=== PATIENT | female | born 1960 | race Caucasian/White ===

== ENCOUNTER 2021-08-25 13:26 | Inpatient (IN) ==
[2021-08-25] MEDS ORDERED: IPRATROPIUM/ALBUTEROL 3 ML AMPUL.NEB NEB ONE (13:30)
[2021-08-25] MEDS ORDERED: 0.9 % SODIUM CHLORIDE 1,000 ML IV ONE (13:30)
--- NOTE | 2021-08-25 13:30 | Emergency Department Note ---
SOB HPI General Chief Complaint: Shortness of Breath/Dyspnea Stated Complaint: SOB Time Seen by Provider: 08/25/21 13:28 Limitations: no limitations History of Present Illness HPI Narrative: Narrative: Patient comes in today after being seen at [facility] and was found to be hypoxic with a low oxygen saturation. Upon arrival her oxygen saturation 75% on room air. She indicates that she has been feeling short of breath for the last 3 days. 5 days ago she started to have some nausea and diarrhea. 3 days ago she began feeling short of breath, body aches, and nonproductive cough. She denies any chest pains. She has a history of COPD and reports that she still smokes a pack a day. She does not use any inhaler at home and she does not have any oxygen at home. She denies any hemoptysis. She has not had any calf pain, leg pain, or edema. She denies any abdominal pain. She indicates that her nausea and diarrhea has subsided. Related Data Home Medications Medication Instructions Recorded Confirmed buprenorphine 8 mg-naloxone 2 mg 0.5 tab SUBLINGUAL QID 08/25/21 08/25/21 sublingual tablet Previous Rx's Medication Instructions Recorded venlafaxine 150 mg 150 mg PO QAM #30 cap 05/31/15 capsule,extended release 24 hr venlafaxine 75 mg capsule,extended 75 mg PO QAM #30 cap 05/31/15 release 24 hr Allergies Allergy/AdvReac Type Severity Reaction Status Date / Time bupropion [From Zyban] Allergy Unknown Unknown Verified 08/25/21 12:17 [place] Allergy Unknown Unknown Verified 08/25/21 12:17 Penicillins Allergy Anaphylaxis Verified 08/25/21 12:17 risperidone AdvReac Swelling Verified 08/25/21 12:17 Review of Systems ROS ROS Narrative: Narrative: All systems ED: reviewed and negative except as stated. PFSH Narrative Patient History Narrative: Narrative: Medical/Surgical/Family History All Active Problems (Updated 08/25/21 @ 20:41 by CARMEN Gilbert) Acute exacerbation of chronic obstructive airways disease (Acute) Community acquired pneumonia (Acute) Hypoxia (Acute) Impacted cerumen, left ear (Acute) Opioid dependence, in remission (Acute) Opioid abuse, in remission (Acute) Encounter for monitoring Suboxone maintenance therapy (Acute) H/O tooth extraction (Chronic 08/31/12) Herpes, genital (Chronic) H/O methicillin resistant Staphylococcus aureus infection (Chronic) Hypothyroidism (Chronic) Hepatitis B (Chronic) Hypercholesterolemia (Chronic) Back pain (Chronic) Abnormal clinical finding (Chronic) Bipolar II disorder (Chronic) Allergic rhinitis (Chronic) Bullous myringitis (Chronic) Eczema (Chronic) Dizziness (Acute) Seasonal allergies (Chronic) History of colonoscopy (Chronic) Tobacco dependence (Chronic) Hyperkalemia (Acute) Encounter for wellness examination (Acute) Acne (Chronic) History of carpal tunnel surgery (Chronic) History of surgery (Chronic) History of rectocele (Chronic) History of hysterectomy (Chronic) Mixed stress and urge urinary incontinence (Chronic 06/30/13) Hypertension (Chronic) Hyperlipidemia (Chronic) Fecal incontinence (Chronic 07/08/13) Depression (Chronic) Chronic obstructive pulmonary disease (Chronic) Anxiety (Chronic) Abnormal results of thyroid function studies (Chronic) Medical History Abnormal clinical finding Abnormal results of thyroid function studies Acne Allergic rhinitis Anxiety Back pain Bipolar II disorder per Celso Huber Bladder infection (06/30/13) Bullous myringitis Chronic obstructive pulmonary disease Depression Prozac or Lexapro not helpful. Effexor was helphul Dizziness Dysuria Eczema Encounter for monitoring Suboxone maintenance therapy Encounter for wellness examination Fecal incontinence (07/08/13) H/O methicillin resistant Staphylococcus aureus infection 2009 On chin Hepatitis B 2002 Herpes, genital Hypercholesterolemia Hyperkalemia Hyperlipidemia Hypertension Hypothyroidism remote history Mixed stress and urge urinary incontinence (06/30/13) Opioid abuse, in remission Opioid dependence, in remission Seasonal allergies Tobacco dependence Surgical History H/O tooth extraction (08/31/12) 2 teeth removed and bone graphing done History of carpal tunnel surgery B/L wrist History of colonoscopy abnormal but not sure. done 2011 repeat 3 years. History of hysterectomy 1999. dysmenorrhea. cervix absent. ovaries present History of rectocele Repair 2004 History of surgery "sling" 2004 Family History Sister Malignant neoplasm of lung Mother Malignant neoplasm of uterus Hypercholesterolemia Essential hypertension Grandmother-maternal Hyperlipidemia Essential hypertension Asthma [place] x2 Bipolar I disorder Children ADD (attention deficit hyperactivity disorder, inattentive type) Daughter Anxiety Father Malignant neoplasm of stomach Sister Bipolar I disorder Social History Smoking Status: Current every day smoker Alcohol Intake Frequency: former alcohol drinker Substance Use: does not use, former substance user, marijuana, crack/cocaine and amphetamines Exam Narrative Narrative: Narrative: General Limitations: no limitations General appearance: Present alert and in no apparent distress Head Head: Present atraumatic, normocephalic and normal inspection Eye Eye: Present normal appearance; Absent scleral icterus ENT ENT: Present normal oropharynx and mucous membranes moist Neck Neck: Present normal inspection and full ROM Expanded Neck Neck - focused: Absent JVD Chest Chest: Present symmetric chest wall rise Respiratory Respiratory: Present other (Tachypnea. Expiratory wheezes in all lobes. Decreased bases bilaterally.) Cardiovascular Cardiovascular: Present normal rhythm, tachycardia and normal heart sounds Extremities Extremities: Present normal inspection, full ROM and normal capillary refill; Absent pretibial edema, calf tenderness or cyanosis Neurological Neurological: Present alert and oriented X3 Psychiatric Psychiatric: Present normal affect and normal mood Skin Skin: Present warm (WNL), dry and normal color Course Vital Signs Vital signs: Vital Signs Temperature 98.3 F 08/25/21 13:30 Pulse Rate 115 H 08/25/21 13:30 Respiratory Rate 29 H 08/25/21 13:30 Blood Pressure 158/98 08/25/21 13:30 Pulse Oximetry (%) 75 L 08/25/21 13:30 Temperature 98.3 F 08/25/21 13:30 Pulse Rate 86 08/25/21 20:01 Respiratory Rate 18 08/25/21 20:01 Blood Pressure 138/81 08/25/21 20:01 Pulse Oximetry (%) 89 L 08/25/21 20:[address] [facility] MDM Narrative Medical decision making narrative: Narrative: 61-year-old female who came into the emergency department today with shortness of breath for last 3 days. Upon arrival room air oxygen saturation 75%. Required at least 3 L of O2 to maintain oxygen saturation greater than 90%. Patient was given a DuoNeb and this did help improve her wheezing symptoms. Ordered 125 mg of Solu-Medrol IV. EKG normal sinus rhythm with no acute coronary syndrome findings. Chest x-ray today shows mild infiltrates bilateral lower lobes. Ordered the patient 1 g Rocephin IV to be given in the emergency department. She does indicate that she has taken cephalosporins in the past without any allergic reaction. COVID-19 rapid test today is negative. Patient's white count today is 6.2. Troponin is normal. CMP unremarkable. Procalcitonin is normal. proBNP slightly elevated at 208. The D-dimer lab had to be redrawn and patient remained in the emergency department for several hours awaiting labs to result. D-dimer is negative today. Patient still requiring O2 and does not have any O2 at home. I Do feel best plan with this patient would be to admit to the hospital. I was able to talk with Dr. Coelho today and he does accept to admit patient to the hospital today at [facility]. Lab Data Lab results reviewed: Yes I reviewed the patient's lab results. Result diagrams: 08/25/21 13:41 08/25/21 13:40 Labs: Lab Results 08/25/21 08/25/21 08/25/21 Range/Units 13:40 13:40 13:40 WBC (4.5-11.0) K/mcL RBC (3.59-5.38) M/mcL Hgb (11.2-15.7) g/dL Hct (34.1-44.9) % MCV (80.0-100.0) fL MCH (26.0-34.0) pg MCHC (31.0-36.0) g/dL RDW (11.5-14.5) % Plt Count (140-440) K/mcL MPV (7.4-10.4) fL Neut % (Auto) (38.0-78.0) % Lymph % (Auto) (15.5-49.0) % [place] % (Auto) (1.0-12.0) % Eos % (Auto) (0.0-7.0) % Baso % (Auto) (0.0-2.0) % Lymph # (Auto) (1.50-4.80) K/mcL [place] # (Auto) (0.10-0.90) K/mcL Eos # (Auto) (0.00-0.70) K/mcL Baso # (Auto) (0.00-0.30) K/mcL Absolute Neutrophils (1.80-8.00) K/mcL D-Dimer TNP Sodium 138 (133-145) mmol/L Potassium 3.9 (3.3-5.1) mmol/L Chloride 100 (96-108) mmol/L Carbon Dioxide 22 (22-30) mmol/L Anion Gap 16.0 (8.0-16.0) BUN 9 (8-23) mg/dL Creatinine 0.5 L (0.6-1.1) mg/dL GFR Calculation 104 Glucose 122 H (70-105) mg/dL Calcium 8.9 (8.6-10.4) mg/dL Total Bilirubin 0.3 (0.1-1.0) mg/dL AST 18 (<32) U/L ALT 21 (<40) U/L Alkaline Phosphatase 79 (39-117) U/L Troponin T < 0.01 (<0.03) ng/mL NT-Pro-B Natriuret Pep 208.3 H (<125.0) pg/mL Total Protein 7.2 (5.9-8.4) gm/dL Albumin 4.2 (3.2-5.2) gm/dL Globulin 3.0 (2.2-3.7) gm/dL Albumin/Globulin Ratio 1.4 (1.0-2.3) Procalcitonin (<0.10) ng/mL 08/25/21 08/25/21 08/25/21 Range/Units 13:40 13:41 16:20 WBC 6.2 (4.5-11.0) K/mcL RBC 6.18 H (3.59-5.38) M/mcL Hgb 19.2 H (11.2-15.7) g/dL Hct 57.5 H (34.1-44.9) % MCV 93.0 (80.0-100.0) fL MCH 31.1 (26.0-34.0) pg MCHC 33.4 (31.0-36.0) g/dL RDW 13.7 (11.5-14.5) % Plt Count 163 (140-440) K/mcL MPV 10.0 (7.4-10.4) fL Neut % (Auto) 70.2 (38.0-78.0) % Lymph % (Auto) 16.9 (15.5-49.0) % [place] % (Auto) 11.4 (1.0-12.0) % Eos % (Auto) 1.0 (0.0-7.0) % Baso % (Auto) 0.5 (0.0-2.0) % Lymph # (Auto) 1.05 L (1.50-4.80) K/mcL [place] # (Auto) 0.71 (0.10-0.90) K/mcL Eos # (Auto) 0.06 (0.00-0.70) K/mcL Baso # (Auto) 0.03 (0.00-0.30) K/mcL Absolute Neutrophils 4.36 (1.80-8.00) K/mcL D-Dimer 0.46 Sodium (133-145) mmol/L Potassium (3.3-5.1) mmol/L Chloride (96-108) mmol/L Carbon Dioxide (22-30) mmol/L Anion Gap (8.0-16.0) BUN (8-23) mg/dL Creatinine (0.6-1.1) mg/dL GFR Calculation Glucose (70-105) mg/dL Calcium (8.6-10.4) mg/dL Total Bilirubin (0.1-1.0) mg/dL AST (<32) U/L ALT (<40) U/L Alkaline Phosphatase (39-117) U/L Troponin T (<0.03) ng/mL NT-Pro-B Natriuret Pep (<125.0) pg/mL Total Protein (5.9-8.4) gm/dL Albumin (3.2-5.2) gm/dL Globulin (2.2-3.7) gm/dL Albumin/Globulin Ratio (1.0-2.3) Procalcitonin 0.05 (<0.10) ng/mL ED POC Tests ED POC Tests: MAG - SARS Antigen Negative Radiology Data Radiology results reviewed: Yes I reviewed the patient's radiology results. Radiology results narrative: Ordering Physician:Han Mosley Date of Service:08/25/21 Procedure(s):XR chest 1V portable CLINICAL INFORMATION: Dyspnea COMPARISON: None. TECHNIQUE: Portable FINDINGS: The heart size, mediastinum and pulmonary vessels are unremarkable. Mild vague airspace disease seen in both lower lungs.. There are no effusions. The bones and soft tissues are within normal limits. IMPRESSION: Mild infiltrates both lower lungs. Interpreted and Authenticated by: Tommie Jarrell 08/25/21 EKG Data EKG #1: EKG attestation: Yes I reviewed and interpreted this EKG. and Yes There are no EKG findings of acute coronary syndrome EKG shows normal: sinus rhythm Rate: normal Discharge Plan Patient/Caregiver Discharge Instructions Pt seen by OIL TESTER/PA only: No Clinical Impression: Acute exacerbation of chronic obstructive airways disease, Community acquired pneumonia Patient Disposition: Xfer As Inpt ([facility]) Follow up with: Eloise Suh ARNP [Primary Care Provider] - Prescriptions: No Action venlafaxine 150 mg capsule,extended release 24hr 150 mg PO QAM Qty: 30 2RF Label Comments: Take with 75mg to total 225mg venlafaxine 75 mg capsule,extended release 24hr 75 mg PO QAM Qty: 30 2RF Label Comments: Take with 150mg tablet to total 225mg buprenorphine-naloxone 8-2 mg tablet, sublingual 0.5 tab sublingual QID 0RF
[2021-08-25] MEDS ORDERED: methylPREDNISolone SOD SUCC 125 MG/2 ML VIAL IV ONE (14:34)
--- NOTE | 2021-08-25 14:36 | XRay Report ---
CLINICAL INFORMATION: Dyspnea COMPARISON: None. TECHNIQUE: Portable FINDINGS: The heart size, mediastinum and pulmonary vessels are unremarkable. Mild vague airspace disease seen in both lower lungs.. There are no effusions. The bones and soft tissues are within normal limits. IMPRESSION: Mild infiltrates both lower lungs. Interpreted and Authenticated by: Tommie Jarrell 08/25/21
[2021-08-25 14:45] LABS: Basophils # (Auto) 0.03 K/mcL (0.00-0.30); Basophils % (Auto) 0.5 % (0.0-2.0); Eosinophils # (Auto) 0.06 K/mcL (0.00-0.70); Hematocrit 57.5 % (34.1-44.9); Hemoglobin 19.2 g/dL (11.2-15.7); Lymphocytes # (Auto) 1.05 K/mcL (1.50-4.80); Lymphocytes % (Auto) 16.9 % (15.5-49.0); Mean Corpuscular HGB Conc 33.4 g/dL (31.0-36.0); Monocytes # (Auto) 0.71 K/mcL (0.10-0.90); Monocytes % (Auto) 11.4 % (1.0-12.0); Neutrophils % (Auto) 70.2 % (38.0-78.0); Platelet Count 163 K/mcL (140-440); RBC 6.18 M/mcL (3.59-5.38); Red Cell Distribution Width 13.7 % (11.5-14.5); WBC 6.2 K/mcL (4.5-11.0)
[2021-08-25] MEDS ORDERED: cefTRIAXone 1 GM VIAL IV ONE (14:51)
[2021-08-25 14:56] LABS: proBNP 208.3 pg/mL (<125.0)
[2021-08-25 14:58] LABS: ALT/SGPT 21 U/L (<40); AST/SGOT 18 U/L (<32); Albumin 4.2 gm/dL (3.2-5.2); Albumin/Globulin Ratio 1.4 (1.0-2.3); Alkaline Phosphatase 79 U/L (39-117); Bilirubin,Total 0.3 mg/dL (0.1-1.0); Blood Urea Nitrogen 9 mg/dL (8-23); Calcium 8.9 mg/dL (8.6-10.4); Carbon Dioxide 22 mmol/L (22-30); Chloride 100 mmol/L (96-108); Glomerular Filtration Rate 104; Glucose 122 mg/dL (70-105)
--- NOTE | 2021-08-25 19:53 | Internal Med History&Physical ---
HPI History of Present Illness Patient information: Note initiated : 08/25/21 at 7:46 pm Service Date, if different from initiated Date: [] Patient: Imelda Echavarria a 61 y/o F admitted on for Shortness of breath. Chief Complaint: [] History of present illness: Ms. Echavarria is a 61 year old F Patient presented to minor care today because she was short of breath had a worsening of her chronic cough nausea vomiting some diarrhea. Patient has had the Covid vaccine in the booster. Symptoms have been going on for about 3 to 5 days. In the ED she was evaluated. Vital signs are stable. Laboratories unremarkable. However she was hypoxic on room air in the 70s. Given a breathing treatment with improvement but still hypoxic. Chest x-ray read as mild infiltrate in lower lungs. Suspect atelectasis or chronic changes.She is afebrile and procalcitonin was low and no leukocytosis. Review of Systems: Positives as above plus headache. Denies fever/chills/chest or abdominal pain. Remaining 10 point review of system reviewed negative PFSH PFSH All Active Problems (Updated 08/25/21 @ 13:16 by Jesse Bird PA-C) Hypoxia (Acute) Impacted cerumen, left ear (Acute) Opioid dependence, in remission (Acute) Opioid abuse, in remission (Acute) Encounter for monitoring Suboxone maintenance therapy (Acute) H/O tooth extraction (Chronic 08/31/12) Herpes, genital (Chronic) H/O methicillin resistant Staphylococcus aureus infection (Chronic) Hypothyroidism (Chronic) Hepatitis B (Chronic) Hypercholesterolemia (Chronic) Back pain (Chronic) Abnormal clinical finding (Chronic) Bipolar II disorder (Chronic) Allergic rhinitis (Chronic) Bullous myringitis (Chronic) Eczema (Chronic) Dizziness (Acute) Seasonal allergies (Chronic) History of colonoscopy (Chronic) Tobacco dependence (Chronic) Hyperkalemia (Acute) Encounter for wellness examination (Acute) Acne (Chronic) History of carpal tunnel surgery (Chronic) History of surgery (Chronic) History of rectocele (Chronic) History of hysterectomy (Chronic) Mixed stress and urge urinary incontinence (Chronic 06/30/13) Hypertension (Chronic) Hyperlipidemia (Chronic) Fecal incontinence (Chronic 07/08/13) Depression (Chronic) Chronic obstructive pulmonary disease (Chronic) Anxiety (Chronic) Abnormal results of thyroid function studies (Chronic) Medical History Abnormal clinical finding Abnormal results of thyroid function studies Acne Allergic rhinitis Anxiety Back pain Bipolar II disorder per Celso Huber Bladder infection (06/30/13) Bullous myringitis Chronic obstructive pulmonary disease Depression Prozac or Lexapro not helpful. Effexor was helphul Dizziness Dysuria Eczema Encounter for monitoring Suboxone maintenance therapy Encounter for wellness examination Fecal incontinence (07/08/13) H/O methicillin resistant Staphylococcus aureus infection 2009 On chin Hepatitis B 2002 Herpes, genital Hypercholesterolemia Hyperkalemia Hyperlipidemia Hypertension Hypothyroidism remote history Mixed stress and urge urinary incontinence (06/30/13) Opioid abuse, in remission Opioid dependence, in remission Seasonal allergies Tobacco dependence Surgical History H/O tooth extraction (08/31/12) 2 teeth removed and bone graphing done History of carpal tunnel surgery B/L wrist History of colonoscopy abnormal but not sure. done 2010 repeat 3 years. History of hysterectomy 1999. dysmenorrhea. cervix absent. ovaries present History of rectocele Repair 2004 History of surgery "sling" 2004 Family History Sister Malignant neoplasm of lung Mother Malignant neoplasm of uterus Hypercholesterolemia Essential hypertension Grandmother-maternal Hyperlipidemia Essential hypertension Asthma [place] x2 Bipolar I disorder Children ADD (attention deficit hyperactivity disorder, inattentive type) Daughter Anxiety Father Malignant neoplasm of stomach Sister Bipolar I disorder Social History adopted: No caregiver/support person: No foster care: No household members: family housing: house lives independently: Yes marital status: education level: middle school service: No senior living: No occupational status: unemployed other: Children-2 alcohol intake frequency: former alcohol drinker substance use type: does not use, former substance user, marijuana, crack/cocaine and amphetamines MEDS/ALLERGIES Home Medications and Allergies Home Medications Medication Instructions Recorded Confirmed Type venlafaxine 150 mg 150 mg PO QAM #30 cap 05/31/15 08/25/21 Rx capsule,extended release 24 hr venlafaxine 75 mg capsule,extended 75 mg PO QAM #30 cap 05/31/15 08/25/21 Rx release 24 hr trazodone 50 mg tablet 100 mg PO QHS tab 05/31/21 08/25/21 History buprenorphine 8 mg-naloxone 2 mg 1 tab SUBLINGUAL BID #60 tab 08/01/21 08/25/21 Rx sublingual tablet Allergies Allergy/AdvReac Type Severity Reaction Status Date / Time bupropion [From Nitishan] Allergy Unknown Unknown Verified 08/25/21 12:17 [place] Allergy Unknown Unknown Verified 08/25/21 12:17 Penicillins Allergy Anaphylaxis Verified 08/25/21 12:17 risperidone AdvReac Swelling Verified 08/25/21 12:17 EXAM Constitutional Vitals: Temp Pulse Resp BP Pulse Ox 98.3 F 88 19 138/88 90 08/25/21 13:30 08/25/21 18:01 08/25/21 18:01 08/25/21 18:01 08/25/21 18:01 Exam: General: Alert, Awake, No acute Distress Eyes/N/T: EOMI, PERRL, Head/Neck: neck supple, normocephalic atraumatic CV: RRR, No murmurs, normal s1/s2 Pulm: Wheezing b/l, prolonged expiratory phase, Abd: soft, nontender, +BS x4 Ext: no clubbing/cyanosis/edema Neuro: Alert, no focal deficits, moves all extremities, CN 2-12 grossly intact, symmetrical strength b/l upper/lower, sensations intact b/l upper/lower Skin: warm/dry DATA Data Completed and Pending Labs: Labs from last 24 hours 08/25/21 08/25/21 08/25/21 16:20 13:41 13:40 WBC 6.2 RBC 6.18 H Hgb 19.2 H Hct 57.5 H MCV 93.0 MCH 31.1 MCHC 33.4 RDW 13.7 Plt Count 163 MPV 10.0 Neut % (Auto) 70.2 Lymph % (Auto) 16.9 [place] % (Auto) 11.4 Eos % (Auto) 1.0 Baso % (Auto) 0.5 Lymph # (Auto) 1.05 L [place] # (Auto) 0.71 Eos # (Auto) 0.06 Baso # (Auto) 0.03 Absolute Neutrophils 4.36 D-Dimer 0.46 Sodium Potassium Chloride Carbon Dioxide Anion Gap BUN Creatinine GFR Calculation Glucose Calcium Total Bilirubin AST ALT Alkaline Phosphatase Troponin T NT-Pro-B Natriuret Pep Total Protein Albumin Globulin Albumin/Globulin Ratio Procalcitonin 0.05 08/25/21 08/25/21 08/25/21 13:40 13:40 13:40 WBC RBC Hgb Hct MCV MCH MCHC RDW Plt Count MPV Neut % (Auto) Lymph % (Auto) [place] % (Auto) Eos % (Auto) Baso % (Auto) Lymph # (Auto) [place] # (Auto) Eos # (Auto) Baso # (Auto) Absolute Neutrophils D-Dimer TNP Sodium 138 Potassium 3.9 Chloride 100 Carbon Dioxide 22 Anion Gap 16.0 BUN 9 Creatinine 0.5 L GFR Calculation 104 Glucose 122 H Calcium 8.9 Total Bilirubin 0.3 AST 18 ALT 21 Alkaline Phosphatase 79 Troponin T < 0.01 NT-Pro-B Natriuret Pep 208.3 H Total Protein 7.2 Albumin 4.2 Globulin 3.0 Albumin/Globulin Ratio 1.4 Procalcitonin A/P Narrative A/P Narrative: A: *Acute on chronic hypoxic respiratory failure: *COPD (not on home O2): Does not have inhalers because they are too expensive *Depression/anxiety: *Opioid dependence: On suboxone * P: -steroids(wean), nebs, -O2 supp, wean, may need home O2. Also needs home IH's -IS/[place], RT -Empiric antibiotics - -Medication reconciliation -Smoking cessation counseling -ppx: Lovenox DNR Time Spent With Patient Time: Total time spent is greater than 50% in coordination of care (as documented) at patient's floor/unit and/or counseling patient:
[2021-08-25] MEDS ORDERED: ONDANSETRON 4 MG/2 ML VIAL IV PRN (21:20)
[2021-08-25] MEDS ORDERED: POTASSIUM CHLORIDE 20 MEQ TABLET PO PRN ×2 (21:20)
[2021-08-25] MEDS ORDERED: POTASSIUM CHLORIDE 40 MEQ in DEXTROSE 5% IN WATER 500 ML IV PRN (21:20)
[2021-08-25] MEDS ORDERED: ACETAMINOPHEN 325 MG TABLET PO PRN (21:20)
[2021-08-25] MEDS ORDERED: MAGNESIUM SULFATE 2 GM/50 ML BAG IV PRN (21:20)
[2021-08-25] MEDS ORDERED: SENNOSIDES 1 TABLET PO PRN (21:20)
[2021-08-25] MEDS ORDERED: IPRATROPIUM/ALBUTEROL 3 ML AMPUL.NEB NEB PRN (21:20)
[2021-08-25] MEDS ORDERED: POLYETHYLENE GLYCOL 3350 17 GM PACKET PO PRN (21:20)
[2021-08-25] MEDS: BUDESONIDE 0.5 MG/2 ML AMPUL.NEB NEB SCH (21:46)
[2021-08-25] MEDS: methylPREDNISolone SOD SUCC 125 MG/2 ML VIAL IV SCH (23:15)
[2021-08-25] MEDS: AZITHROMYCIN 500 MG in DEXTROSE 5% IN WATER 250 ML IV SCH (23:16)
[2021-08-25] MEDS: 0.9 % SODIUM CHLORIDE 10 ML SYRINGE IV SCH (23:16)
[2021-08-26] MEDS: IPRATROPIUM/ALBUTEROL 3 ML AMPUL.NEB NEB SCH ×4 (00:22→20:11)
[2021-08-26] MEDS: 0.9 % SODIUM CHLORIDE 10 ML SYRINGE IV SCH ×3 (06:18→22:06)
[2021-08-26] MEDS: methylPREDNISolone SOD SUCC 125 MG/2 ML VIAL IV SCH ×3 (06:19→22:06)
[2021-08-26] MEDS: BUDESONIDE 0.5 MG/2 ML AMPUL.NEB NEB SCH ×2 (07:25→20:11)
[2021-08-26 08:36] LABS: ALT/SGPT 20 U/L (<40); AST/SGOT 13 U/L (<32); Albumin/Globulin Ratio 1.5 (1.0-2.3); Alkaline Phosphatase 70 U/L (39-117); Bilirubin,Direct < 0.2 mg/dL (0-0.3); Bilirubin,Total 0.2 mg/dL (0.1-1.0); Blood Urea Nitrogen 10 mg/dL (8-23); Carbon Dioxide 26 mmol/L (22-30); Chloride 101 mmol/L (96-108); Globulin 2.6 gm/dL (2.2-3.7); Glomerular Filtration Rate 112; Glucose 153 mg/dL (70-105); Lactate Dehydrogenase 241 U/L (135-225); Phosphorous 2.9 mg/dL (2.5-4.5); Triglycerides 67 mg/dL (<150)
--- NOTE | 2021-08-26 08:42 | Internal Med Progress Note ---
SUBJECTIVE Subjective Patient information: Note initiated : 08/26/21 at 8:38 am Service Date, if different from initiated Date: [] Patient: Imelda Echavarria 61 y/o F admitted on 08/25/21 for Shortness of breath. Chief Complaint: [] Interval history: History of present illness: Ms. Echavarria is a 61 year old F Patient presented to minor care today because she was short of breath had a worsening of her chronic cough nausea vomiting some diarrhea. Patient has had the Covid vaccine in the booster. Symptoms have been going on for about 3 to 5 days. In the ED she was evaluated. Vital signs are stable. Laboratories unremarkable. However she was hypoxic on room air in the 70s. Given a breathing treatment with improvement but still hypoxic. Chest x-ray read as mild infiltrate in lower lungs. Suspect atelectasis or chronic changes.She is afebrile and procalcitonin was low and no leukocytosis. 2/6 Patient feels a bit stronger today. Breathing a little easier. Mild cough. Review of Systems: denies headache/fever/chills/nausea/vomiting/chest or abdominal pain/diarrhea. Otherwise see above. Constitutional Vitals: Vital Signs Temp Pulse Resp BP Pulse Ox 97.7 F 81 18 135/82 91 08/26/21 07:21 08/26/21 07:26 08/26/21 07:26 08/26/21 07:21 08/26/21 07:26 Period Temp Pulse Resp BP Sys/García Pulse Ox Last 24 Hr 97.5 F-98.8 F 81-115 12-29 118-158/72-98 75-92 Intake and Output 08/25/21 08/26/21 08/26/21 21:59 05:59 13:59 Intake Total 1000 840 Output Total 650 150 Balance 1000 190 -150 Weight 63.503 kg Intake & Output: Intake & Output 08/25/21 08/26/21 08/26/21 21:59 05:59 13:59 Intake Total 1000 840 Output Total 650 150 Balance 1000 190 -150 Weight 63.503 kg Intake: IV 1000 250 Sodium Chloride 0.9% 1,000 ml @ 1000 Wide Open IV .Q0M ONE Rx#: [id number] Zithromax 500 mg In Dextrose 5% 250 in Water 250 ml @ 250 mls/hr IV DAILY [facility] Rx#:[id number] Oral 590 Output: Void Amount 650 150 Other: Urine Appearance Clear Urine Color Straw Light Tanya Light Tanya Exam: General: Alert, Awake, No acute Distress Eyes/N/T: EOMI, Head/Neck: neck supple, CV: RRR, No murmurs, Pulm: Wheezing b/l, prolonged expiratory phase, Abd: soft, nontender, +BS x4 Ext: no clubbing/cyanosis/edema Neuro: Alert, no focal deficits, moves all extremities, Skin: warm/dry OBJ DATA Labs CBC & Chem 7: 08/25/21 13:41 08/26/21 05:56 Labs: Abnormal Lab Results 08/26/21 08/25/21 08/25/21 05:56 13:41 13:40 RBC 6.18 H Hgb 19.2 H Hct 57.5 H Lymph # (Auto) 1.05 L Creatinine 0.4 L 0.5 L Glucose 153 H 122 H Lactate Dehydrogenase 241 H NT-Pro-B Natriuret Pep 208.3 H Meds: Medications Acetaminophen (Acetaminophen 325 Mg Tablet) 650 mg PO Q6HP PRN; Protocol PRN Reason: Per Pain Protocol/Fever > 101 Last Admin: 08/25/21 23:14 Dose: 650 mg Documented by: Albuterol/Ipratropium (Ipratropium/Albuterol 3 Ml Ampul.Neb) 3 ml NEB Q6HRT [facility] Last Admin: 08/26/21 07:25 Dose: 3 ml Documented by: Albuterol/Ipratropium (Ipratropium/Albuterol 3 Ml Ampul.Neb) 3 ml NEB Q4HP PRN PRN Reason: Shortness Of Breath Budesonide (Budesonide 0.5 Mg/2 Ml Ampul.Neb) 0.5 mg NEB Q12 [facility] Last Admin: 08/26/21 07:25 Dose: 0.5 mg Documented by: Enoxaparin Sodium (Enoxaparin 40 Mg/0.4 Ml Syringe) 40 mg SQ DAILY [facility] Potassium Chloride 40 meq/ (Dextrose) 520 mls @ 130 mls/hr IV UD PRN PRN Reason: Potassium < 3 Magnesium Sulfate (Magnesium Sulfate) 2 gm in 50 mls @ 50 mls/hr IV UD PRN PRN Reason: Magnesium </= 1.6 Azithromycin 500 mg/ Dextrose 250 mls @ 250 mls/hr IV DAILY [facility]OR[facility]; Protocol Stop: 08/27/21 09:59 Last Infusion: 08/26/21 00:25 Dose: Infused Documented by: Methylprednisolone Sodium Succinate (Methylprednisolone Sod Succ 125 Mg/2 Ml Vial) 62.5 mg IV Q8 [facility] Last Admin: 08/26/21 06:19 Dose: 62.5 mg Documented by: Ondansetron HCl (Ondansetron 4 Mg/2 Ml Vial) 4 mg IV Q4HP PRN PRN Reason: Nausea And Vomiting Pneumococcal Polyvalent Vaccine (Pneumococcal 23-Mariam P-Sac Vac 0.5 Ml Syringe) 0.5 ml IM .ONCE ONE Stop: 08/27/21 10:01 Polyethylene Glycol (Polyethylene Glycol 3350 17 Gm Packet) 17 gm PO DAILYP PRN PRN Reason: Constipation Potassium Chloride (Potassium Chloride 20 Meq Tablet) 40 meq PO UD PRN PRN Reason: Potssium is 3-3.5 Potassium Chloride (Potassium Chloride 20 Meq Tablet) 40 meq PO UD PRN PRN Reason: Potassium < 3 Senna (Sennosides 1 Tablet) 2 tab PO DAILYP PRN PRN Reason: Constipation Sodium Chloride (0.9 % Sodium Chloride 10 Ml Syringe) 10 ml IV Q8 [facility] Last Admin: 08/26/21 06:18 Dose: 10 ml Documented by: A/P Narrative A/P Narrative: A: *Acute on chronic hypoxic respiratory failure: -on 3L NC *AECOPD (not on home O2): Does not have inhalers because they are too expensive -PCT low *Depression/anxiety: *Opioid dependence: On suboxone P: -steroids(wean), nebs, -O2 supp wean. Likely will need home O2 -Needs prescription for home inhalers -IS/acapeall, RT -Empiric antibiotics -Smoking cessation counseling -ppx: Lovenox DNR Time Spent With Patient Time: Total time spent is greater than 50% in coordination of care (as documented) at patient's floor/unit and/or counseling patient: [facility] VTE Deep Vein Thrombosis/Pulmonary Embolism Present on Admission: No
[2021-08-26] MEDS ORDERED: VENLAFAXINE 150 MG CAP.XL.24H PO SCH (09:00)
[2021-08-26] MEDS: VENLAFAXINE 75 MG CAP.XL.24H PO SCH (09:48)
[2021-08-26] MEDS: ENOXAPARIN 40 MG/0.4 ML SYRINGE SQ SCH (09:48)
[2021-08-26] MEDS: BUPRENORPHINE/NALOXONE 4MG/1MG ORAL FILM SL SCH ×4 (09:48→22:11)
--- NOTE | 2021-08-26 11:42 | Discharge Summary ---
Discharge Provider Provider Patient information: Note initiated : 08/26/21 at 11:40 am Service Date, if different from initiated Date: [] Patient: Imelda Echavarria 61 y/o F admitted on 08/25/21 for Shortness of breath. Chief Complaint: [] Date of admission: 08/25/21 21:15 Discharge date: 08/27/21 Primary care physician: CARMEN Galvez Consults: 08/25/21 Consult to Physician [CONS] Stat Comment: Consulting Provider: Norman Coelho Reason For Exam: Physician to Consult Discharge Meds Discharge Medications Home Medications venlafaxine 150 mg capsule,extended release 24 hr 150 mg PO QAM #30 cap 05/31/15 [Rx Confirmed 08/25/21 Last Taken 08/25/21 09:00] venlafaxine 75 mg capsule,extended release 24 hr 75 mg PO QAM #30 cap 05/31/15 [Rx Confirmed 08/25/21 Last Taken 08/25/21 09:00] buprenorphine 8 mg-naloxone 2 mg sublingual tablet 0.5 tab SUBLINGUAL QID 08/25/21 [History Confirmed 08/25/21 Last Taken 08/25/21 09:00] albuterol sulfate 90 mcg/actuation aerosol inhaler 2 puff INHALATION Q6H PRN #8 .5 g 08/26/21 [Rx Last Taken Unknown] fluticasone 250 mcg-salmeterol 50 mcg/dose blistr powdr for inhalation (Advair Diskus) 1 inh INHALATION Q12H #60 ea 08/26/21 [Rx Last Taken Unknown] prednisone 10 mg tablet 40 mg PO QDAY #1 tab 08/26/21 [Rx Last Taken Unknown] COURSE Hospital Course Hospital course: History of present illness: Ms. Echavarria is a 61 year old F Patient presented to minor care today because she was short of breath had a worsening of her chronic cough nausea vomiting some diarrhea. Patient has had the Covid vaccine in the booster. Symptoms have been going on for about 3 to 5 days. In the ED she was evaluated. Vital signs are stable. Laboratories unremarkable. However she was hypoxic on room air in the 70s. Given a breathing treatment with improvement but still hypoxic. Chest x-ray read as mild infiltrate in lower lungs. Suspect atelectasis or chronic changes.She is afebrile and procalcitonin was low and no leukocytosis. 2/ Patient feels a bit stronger today. Breathing a little easier. Mild cough. 2/ No overnight event or new complaints. Patient continues to slowly improve. Feels stable to go home. A: *Acute on chronic hypoxic respiratory failure: *AECOPD (not on home O2): Does not have inhalers because they are too expensive *Depression/anxiety: *Opioid dependence: On suboxone P: -steroids(wean) -home O2 -Needs prescription for home inhalers Discharge diagnosis: Acute exacerbation COPD hypoxic respite failure Secondary discharge diagnosis: Depression anxiety opioid dependence Time Spent with Patient Time attestation: Total time spent providing and/or coordinating discharge services: Time spent: Greater than 30 minutes EXAM Constitutional Vitals: Temp Pulse Resp BP Pulse Ox 97.6 F 83 22 133/89 91 08/26/21 11:33 08/26/21 11:33 08/26/21 11:33 08/26/21 11:33 08/26/21 11:33 Discharge Data Data Completed and Pending Labs on day of discharge: Labs from last 24 hours 08/26/21 08/25/21 08/25/21 05:56 20:45 16:20 WBC RBC Hgb Hct MCV MCH MCHC RDW Plt Count MPV Neut % (Auto) Lymph % (Auto) [place] % (Auto) Eos % (Auto) Baso % (Auto) Lymph # (Auto) [place] # (Auto) Eos # (Auto) Baso # (Auto) Absolute Neutrophils D-Dimer 0.46 Sodium 138 Potassium 4.3 Chloride 101 Carbon Dioxide 26 Anion Gap 11.0 BUN 10 Creatinine 0.4 L GFR Calculation 112 Glucose 153 H Uric Acid 4.0 Calcium 9.0 Phosphorus 2.9 Magnesium 2.0 Total Bilirubin 0.2 Direct Bilirubin < 0.2 GGT 20 AST 13 ALT 20 Alkaline Phosphatase 70 Lactate Dehydrogenase 241 H Troponin T NT-Pro-B Natriuret Pep Total Protein 6.6 Albumin 4.0 Globulin 2.6 Albumin/Globulin Ratio 1.5 Triglycerides 67 Procalcitonin 0.06 08/25/21 08/25/21 08/25/21 13:41 13:40 13:40 WBC 6.2 RBC 6.18 H Hgb 19.2 H Hct 57.5 H MCV 93.0 MCH 31.1 MCHC 33.4 RDW 13.7 Plt Count 163 MPV 10.0 Neut % (Auto) 70.2 Lymph % (Auto) 16.9 [place] % (Auto) 11.4 Eos % (Auto) 1.0 Baso % (Auto) 0.5 Lymph # (Auto) 1.05 L [place] # (Auto) 0.71 Eos # (Auto) 0.06 Baso # (Auto) 0.03 Absolute Neutrophils 4.36 D-Dimer Sodium Potassium Chloride Carbon Dioxide Anion Gap BUN Creatinine GFR Calculation Glucose Uric Acid Calcium Phosphorus Magnesium Total Bilirubin Direct Bilirubin GGT AST ALT Alkaline Phosphatase Lactate Dehydrogenase Troponin T < 0.01 NT-Pro-B Natriuret Pep Total Protein Albumin Globulin Albumin/Globulin Ratio Triglycerides Procalcitonin 0.05 08/25/21 08/25/21 13:40 13:40 WBC RBC Hgb Hct MCV MCH MCHC RDW Plt Count MPV Neut % (Auto) Lymph % (Auto) [place] % (Auto) Eos % (Auto) Baso % (Auto) Lymph # (Auto) [place] # (Auto) Eos # (Auto) Baso # (Auto) Absolute Neutrophils D-Dimer TNP Sodium 138 Potassium 3.9 Chloride 100 Carbon Dioxide 22 Anion Gap 16.0 BUN 9 Creatinine 0.5 L GFR Calculation 104 Glucose 122 H Uric Acid Calcium 8.9 Phosphorus Magnesium Total Bilirubin 0.3 Direct Bilirubin GGT AST 18 ALT 21 Alkaline Phosphatase 79 Lactate Dehydrogenase Troponin T NT-Pro-B Natriuret Pep 208.3 H Total Protein 7.2 Albumin 4.2 Globulin 3.0 Albumin/Globulin Ratio 1.4 Triglycerides Procalcitonin Preliminary micro results at discharge 08/25/21 23:56 Gram Stain - Preliminary Sputum source - Induced Sputum Culture - Preliminary Discharge Plan Patient/Caregiver Discharge Instructions Activity: increase activity as tolerated Diet: Regular Diet Activity Restrictions/Additional Instructions: Home oxygen for COPD. Prescriptions: New albuterol sulfate 90 mcg/actuation HFA aerosol inhaler 2 puff inhalation Q6H PRN (Reason: shortness of breath or wheezing) Qty: 8.5 0RF fluticasone propion-salmeterol [Advair Diskus] 250-50 mcg/dose blister with device 1 inh inhalation Q12H Qty: 60 0RF prednisone 10 mg tablet 40 mg PO QDAY Qty: 1 0RF Rx Instructions: Take 40 mg once daily for 3 days then 20mg daily x3 days then 10mg x3 days then 5mg x2 days and stop. Continued venlafaxine 150 mg capsule,extended release 24hr 150 mg PO QAM Qty: 30 2RF Label Comments: Take with 75mg to total 225mg venlafaxine 75 mg capsule,extended release 24hr 75 mg PO QAM Qty: 30 2RF Label Comments: Take with 150mg tablet to total 225mg buprenorphine-naloxone 8-2 mg tablet, sublingual 0.5 tab sublingual QID 0RF Follow Up Plan Follow up with: Eloise Suh ARNP [Primary Care Provider] - Patient Disposition: Home, Self-Care Prognosis: Fair Overall status at discharge: patient is progressing back to baseline Discharge Orders: Discharge Order (Routine); Ordered 08/27/21 Ordered By: Norman Coelho [facility] VTE Deep Vein Thrombosis/Pulmonary Embolism Present on Admission: No
[2021-08-26] MEDS: AZITHROMYCIN 500 MG in DEXTROSE 5% IN WATER 250 ML IV SCH (12:15)
[2021-08-27] MEDS: IPRATROPIUM/ALBUTEROL 3 ML AMPUL.NEB NEB SCH ×2 (00:59→07:25)
[2021-08-27] MEDS: 0.9 % SODIUM CHLORIDE 10 ML SYRINGE IV SCH (06:15)
[2021-08-27] MEDS: methylPREDNISolone SOD SUCC 125 MG/2 ML VIAL IV SCH (06:15)
[2021-08-27] MEDS: BUDESONIDE 0.5 MG/2 ML AMPUL.NEB NEB SCH (07:25)
[2021-08-27] MEDS: VENLAFAXINE 75 MG CAP.XL.24H PO SCH (08:57)
[2021-08-27] MEDS: ENOXAPARIN 40 MG/0.4 ML SYRINGE SQ SCH (08:57)
[2021-08-27] MEDS: AZITHROMYCIN 500 MG in DEXTROSE 5% IN WATER 250 ML IV SCH (08:58)
[2021-08-27] MEDS ORDERED: PNEUMOCOCCAL 23-VAL P-SAC VAC 0.5 ML SYRINGE IM ONE (10:00)
[2021-08-27] MEDS: BUPRENORPHINE/NALOXONE 4MG/1MG ORAL FILM SL SCH (10:16)
--- NOTE | 2021-08-27 12:01 | EKG ---
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 Measurements Intervals [place] Rate: 93 P: 69 ND: 129 QRS: 94 QRSD: 98 T: 63 QT: 391 QTc: 487 Interpretive Statements Sinus rhythm Right axis deviation Borderline prolonged QT interval Electronically Signed On 08-27-2021 12:01:01 PST by Neida Davalos D.O. /[id number]
[2021-08-27] MEDS ORDERED: predniSONE 20 MG TABLET PO SCH (17:30)
== END 2021-08-27 13:20 | disposition home or self-care (01) | DRG 189 ==
LOC: ED 13:26 → MEDSUR 21:15
PROVIDERS: ADMIT Internal Medicine; ATTEND Internal Medicine

== ENCOUNTER 2024-08-04 16:50 | Inpatient (IN) ==
[2024-08-04] MEDS ORDERED: IOPAMIDOL 100 ML BOTTLE IV ONE (16:51)
[2024-08-04] MEDS: IPRATROPIUM/ALBUTEROL 3 ML AMPUL.NEB NEB ONE (17:15)
[2024-08-04 17:18] LABS: Basophils # (Auto) 0.01 K/mcL (0.00-0.30); Basophils % (Auto) 0.1 % (0.0-2.0); Eosinophils # (Auto) 0.02 K/mcL (0.00-0.70); Eosinophils % (Auto) 0.2 % (0.0-7.0); Hematocrit 49.1 % (34.1-44.9); Hemoglobin 15.8 g/dL (11.2-15.7); Lymphocytes % (Auto) 10.1 % (15.5-49.0); Mean Cell Volume 92.5 fL (80.0-100.0); Mean Corpuscular HGB Conc 32.2 g/dL (31.0-36.0); Mean Platelet Volume 9.5 fL (8.8-12.5); Monocytes # (Auto) 1.06 K/mcL (0.10-0.90); Monocytes % (Auto) 8.9 % (1.0-12.0); Neutrophils % (Auto) 79.9 % (38.0-78.0); Platelet Count 317 K/mcL (140-440); RBC 5.31 M/mcL (3.59-5.38); Red Cell Distribution Width 12.7 % (11.5-14.5); WBC 11.9 K/mcL (4.5-11.0)
[2024-08-04] MEDS: methylPREDNISolone SOD SUCC 125 MG/2 ML VIAL IV ONE (17:28)
[2024-08-04 17:42] LABS: Blood Urea Nitrogen 10 mg/dL (8-23); Calcium 9.6 mg/dL (8.6-10.4); Carbon Dioxide 29 mmol/L (22-30); Chloride 96 mmol/L (96-108); Glomerular Filtration Rate 110; Glucose 153 mg/dL (70-105); Potassium 3.5 mmol/L (3.3-5.1); Sodium 139 mmol/L (133-145)
[2024-08-04 18:47] LABS: Appearance,Urine Clear (Clear); Bilirubin,Urine Negative (Negative); Color,Urine Yellow; Glucose,Urine (UA) Negative (Negative); Ketones,Urine Negative (Negative); Leukocyte Esterase,Urine Negative /uL (Negative); Mucus,Urine Many /hpf; Nitrate,Urine Negative (Negative); Protein,Urine 100 mg/dL (Negative); Specific Gravity,Urine 1.025 (1.000-1.035); Urine Blood Trace ery/mcL (Negative); Urine RBC 3 /hpf (0-3); Urine Squamous Epithelial Cell 2 /hpf (0-4); Urine WBC 4 /hpf (0-4); Urobilinogen,Urine Normal
[2024-08-04] MEDS: LEVOFLOXACIN 750 MG/150 ML BAG IV ONE (20:16)
[2024-08-04] MEDS: 0.9 % SODIUM CHLORIDE 1,000 ML IV ONE (20:21)
[2024-08-04] MEDS ORDERED: LACTULOSE 20 GM/30 ML ORAL.SOL PO PRN (21:49)
[2024-08-04] MEDS ORDERED: ALBUTEROL SULFATE 2.5 MG/3 ML NEBULIZER NEB PRN (21:49)
[2024-08-04] MEDS ORDERED: ACETAMINOPHEN 325 MG TABLET PO PRN (21:49)
[2024-08-04] MEDS ORDERED: ONDANSETRON 4 MG/2 ML VIAL IV PRN (21:49)
[2024-08-04] MEDS ORDERED: NICOTINE POLACRILEX 2 MG GUM CHEW/PARK PRN (22:15)
[2024-08-04] MEDS: methylPREDNISolone SOD SUCC 125 MG/2 ML VIAL IV SCH (22:46)
[2024-08-04] MEDS: DOCUSATE SODIUM 100 MG CAPSULE PO SCH (22:46)
[2024-08-04] MEDS: NICOTINE 21 MG PATCH TOPICAL SCH (22:46)
[2024-08-04] MEDS: BUPRENORPHINE/NALOXONE 4MG/1MG ORAL FILM SL SCH (22:46)
[2024-08-04] MEDS: NICOTINE 21 MG PATCH ONE (22:47)
[2024-08-04] MEDS: 0.9 % SODIUM CHLORIDE 10 ML SYRINGE IV SCH (22:47)
[2024-08-05] MEDS: IPRATROPIUM/ALBUTEROL 3 ML AMPUL.NEB NEB SCH
[2024-08-05 06:37] LABS: Basophils # (Auto) 0.01 K/mcL (0.00-0.30); Basophils % (Auto) 0.2 % (0.0-2.0); Eosinophils # (Auto) 0 K/mcL (0.00-0.70); Eosinophils % (Auto) 0 % (0.0-7.0); Hematocrit 42.8 % (34.1-44.9); Hemoglobin 13.9 g/dL (11.2-15.7); Lymphocytes # (Auto) 0.62 K/mcL (1.50-4.80); Lymphocytes % (Auto) 10.1 % (15.5-49.0); Mean Cell Volume 92.8 fL (80.0-100.0); Mean Corpuscular HGB Conc 32.5 g/dL (31.0-36.0); Mean Platelet Volume 9.7 fL (8.8-12.5); Monocytes # (Auto) 0.14 K/mcL (0.10-0.90); Monocytes % (Auto) 2.3 % (1.0-12.0); Neutrophils % (Auto) 86.6 % (38.0-78.0); Platelet Count 273 K/mcL (140-440); RBC 4.61 M/mcL (3.59-5.38); Red Cell Distribution Width 12.7 % (11.5-14.5); WBC 6.2 K/mcL (4.5-11.0)
[2024-08-05 07:01] LABS: ALT/SGPT 25 U/L (<40); AST/SGOT 21 U/L (<32); Albumin 3.2 gm/dL (3.2-5.2); Albumin/Globulin Ratio 1.1 (1.0-2.3); Alkaline Phosphatase 73 U/L (39-117); Bilirubin,Direct < 0.2 mg/dL (0-0.3); Bilirubin,Total < 0.2 mg/dL (0.1-1.0); Blood Urea Nitrogen 11 mg/dL (8-23); Calcium 9.2 mg/dL (8.6-10.4); Carbon Dioxide 28 mmol/L (22-30); Chloride 102 mmol/L (96-108); Globulin 2.9 gm/dL (2.2-3.7); Glomerular Filtration Rate 121; Glucose 199 mg/dL (70-105); Lactate Dehydrogenase 241 U/L (135-225); Phosphorous 3.1 mg/dL (2.5-4.5); Potassium 3.9 mmol/L (3.3-5.1); Sodium 141 mmol/L (133-145); Triglycerides 77 mg/dL (<150); Uric Acid 3.7 mg/dL (2.5-8.0)
[2024-08-05] MEDS: LEVOFLOXACIN 750 MG/150 ML BAG IV SCH (08:31)
[2024-08-05] MEDS: ENOXAPARIN 40 MG/0.4 ML SYRINGE SQ SCH (08:32)
[2024-08-05] MEDS ORDERED: [UNRECOGNIZED DRUG - OTHER] SUBLINGUAL SCH (17:00)
[2024-08-05] MEDS ORDERED: BUPRENORPHINE NALOXONE SUBLINGUAL SCH (17:00)
[2024-08-05] MEDS: LABETALOL HCL 20 MG/4 ML VIAL IV PRN (17:07)
[2024-08-05] MEDS: BUDESONIDE 0.5 MG/2 ML AMPUL.NEB NEB SCH (19:01)
[2024-08-06 06:24] LABS: Basophils # (Auto) 0 K/mcL (0.00-0.30); Basophils % (Auto) 0 % (0.0-2.0); Eosinophils # (Auto) 0.01 K/mcL (0.00-0.70); Eosinophils % (Auto) 0.1 % (0.0-7.0); Hematocrit 41.1 % (34.1-44.9); Hemoglobin 13.3 g/dL (11.2-15.7); Lymphocytes # (Auto) 0.99 K/mcL (1.50-4.80); Lymphocytes % (Auto) 8.3 % (15.5-49.0); Mean Cell Volume 94.1 fL (80.0-100.0); Mean Corpuscular HGB Conc 32.4 g/dL (31.0-36.0); Mean Platelet Volume 9.5 fL (8.8-12.5); Monocytes # (Auto) 0.66 K/mcL (0.10-0.90); Monocytes % (Auto) 5.5 % (1.0-12.0); Neutrophils % (Auto) 84.3 % (38.0-78.0); Platelet Count 311 K/mcL (140-440); RBC 4.37 M/mcL (3.59-5.38); Red Cell Distribution Width 12.7 % (11.5-14.5); WBC 11.9 K/mcL (4.5-11.0)
[2024-08-06 07:13] LABS: ALT/SGPT 29 U/L (<40); AST/SGOT 21 U/L (<32); Albumin 3.3 gm/dL (3.2-5.2); Albumin/Globulin Ratio 1.3 (1.0-2.3); Alkaline Phosphatase 96 U/L (39-117); Bilirubin,Direct < 0.2 mg/dL (0-0.3); Bilirubin,Total < 0.2 mg/dL (0.1-1.0); Blood Urea Nitrogen 17 mg/dL (8-23); Calcium 9.5 mg/dL (8.6-10.4); Carbon Dioxide 32 mmol/L (22-30); Chloride 101 mmol/L (96-108); Globulin 2.5 gm/dL (2.2-3.7); Glomerular Filtration Rate 102; Glucose 179 mg/dL (70-105); Lactate Dehydrogenase 245 U/L (135-225); Phosphorous 3.6 mg/dL (2.5-4.5); Potassium 4.5 mmol/L (3.3-5.1); Sodium 144 mmol/L (133-145); Triglycerides 64 mg/dL (<150); Uric Acid 3.3 mg/dL (2.5-8.0)
[2024-08-06] MEDS: LEVOTHYROXINE 50 MCG TABLET PO SCH (07:44)
[2024-08-06] MEDS: VENLAFAXINE 150 MG CAP.XL.24H PO SCH (08:06)
[2024-08-06] MEDS: guaiFENesin/CODEINE 10 ML UDC PO PRN (09:25)
[2024-08-06] MEDS: amLODIPine 5 MG TABLET PO SCH (10:50)
[2024-08-06] MEDS: IPRATROPIUM/ALBUTEROL 3 ML AMPUL.NEB NEB SCH (11:03)
[2024-08-06] MEDS: diphenhydrAMINE 25 MG CAPSULE PO PRN (20:19)
[2024-08-06] MEDS: SENNOSIDES 1 TABLET PO PRN (20:19)
[2024-08-06] MEDS: LORazepam 2 MG/ML VIAL IV PRN (21:29)
[2024-08-07] MEDS: ENALAPRILAT 1.25 MG/ML VIAL IV PRN (01:14)
[2024-08-07 06:50] LABS: Basophils # (Auto) 0.01 K/mcL (0.00-0.30); Basophils % (Auto) 0.1 % (0.0-2.0); Eosinophils # (Auto) 0 K/mcL (0.00-0.70); Eosinophils % (Auto) 0 % (0.0-7.0); Hematocrit 46.1 % (34.1-44.9); Hemoglobin 14.8 g/dL (11.2-15.7); Lymphocytes # (Auto) 1.48 K/mcL (1.50-4.80); Mean Cell Volume 93.1 fL (80.0-100.0); Mean Corpuscular HGB Conc 32.1 g/dL (31.0-36.0); Mean Platelet Volume 9.3 fL (8.8-12.5); Monocytes # (Auto) 0.67 K/mcL (0.10-0.90); Monocytes % (Auto) 5.9 % (1.0-12.0); Neutrophils % (Auto) 76.3 % (38.0-78.0); Platelet Count 369 K/mcL (140-440); RBC 4.95 M/mcL (3.59-5.38); Red Cell Distribution Width 12.8 % (11.5-14.5); WBC 11.4 K/mcL (4.5-11.0)
[2024-08-07 07:09] LABS: ALT/SGPT 46 U/L (<40); AST/SGOT 29 U/L (<32); Albumin 3.6 gm/dL (3.2-5.2); Albumin/Globulin Ratio 1.2 (1.0-2.3); Alkaline Phosphatase 87 U/L (39-117); Bilirubin,Direct < 0.2 mg/dL (0-0.3); Bilirubin,Total < 0.2 mg/dL (0.1-1.0); Blood Urea Nitrogen 17 mg/dL (8-23); Calcium 9.3 mg/dL (8.6-10.4); Carbon Dioxide 30 mmol/L (22-30); Chloride 99 mmol/L (96-108); Globulin 3.1 gm/dL (2.2-3.7); Glomerular Filtration Rate 102; Glucose 121 mg/dL (70-105); Lactate Dehydrogenase 311 U/L (135-225); Phosphorous 4.2 mg/dL (2.5-4.5); Potassium 4.7 mmol/L (3.3-5.1); Sodium 141 mmol/L (133-145); Triglycerides 95 mg/dL (<150); Uric Acid 2.8 mg/dL (2.5-8.0)
[2024-08-07] MEDS: predniSONE 20 MG TABLET PO SCH (09:20)
[2024-08-07] MEDS: IPRATROPIUM/ALBUTEROL 3 ML AMPUL.NEB NEB PRN (21:30)
[2024-08-08] MEDS: amLODIPine 5 MG TABLET PO ONE (09:32)
[2024-08-08 12:10] VITALS: TEMP 97.9; O2SAT 92
== END 2024-08-08 12:00 | disposition home or self-care (01) | DRG 189 ==
LOC: ED 16:50 → ICU 21:40 → MEDSUR 08-07 16:38
PROVIDERS: ADMIT Internal Medicine; ATTEND Internal Medicine